=== PATIENT | male | born 1960 | race Caucasian/White ===

== ENCOUNTER 2022-07-20 13:59 | Emergency (ER) | payer OTHER ==
[~2022-07-20] VITALS: Ht 180 cm; Wt 91.0 kg
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
[2022-07-20] MEDS ORDERED: LIDOCAINE 1% INJ 20 ML VIAL INJ ONE (14:15)
[2022-07-20] MEDS ORDERED: TETANUS,DIPTH,PERTUSS P/F (BOOSTRIX) 0.5 ML VIAL IM ONE (14:15)
--- NOTE | 2022-07-20 14:29 | Diagnostic Imaging Report ---
INDICATION: Trauma, chest pain. TECHNIQUE: Frontal chest obtained at 02:24 p.m. FINDINGS: Heart is mildly enlarged. Mediastinal silhouette is unremarkable. There is no pneumothorax or pleural fluid. There is no overt bony abnormality. IMPRESSION: No acute process in the chest. Dictated by: Dictated on workstation # [id number]
--- NOTE | 2022-07-20 15:16 | Diagnostic Imaging Report ---
PROCEDURE: CT head and CT cervical spine without contrast. TECHNIQUE: Multiple contiguous axial images were obtained through the brain and cervical spine without the use of intravenous contrast. Sagittal and coronal reformations through the cervical spine were then performed. Auto Exposure Controls were utilized during the CT exam to meet ALARA standards for radiation dose reduction. INDICATION: Trauma, headache and neck pain and back pain with head laceration. COMPARISON: None. FINDINGS: No acute intracranial hemorrhage. The michelle-white matter differentiation is preserved. The ventricles and cortical sulci are normal. No midline shift or mass effect. No intracranial mass or fluid collection. Scalp laceration and hematoma along the posterior scalp. The subarachnoid cisterns are maintained. The sella is normal. There are scattered calcifications of the intracranial vasculature. The paranasal sinuses and mastoids are clear. Straightening of the cervical lordosis. Prior ACDF C4-C7. No high-density fluid within the spinal canal. No high-grade spinal canal and neural foraminal stenosis. IMPRESSION: No acute intracranial hemorrhage. No large vascular territory quiñonez-white loss. No intracranial mass, midline shift, or hydrocephalus. Posterior scalp hematoma and laceration. No skull fracture. No acute fracture or dislocation of the cervical spine. Dictated by: Dictated on workstation # [id number]
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
[2022-07-20 16:11] VITALS: BP 145/88
== END 2022-07-20 16:21 | disposition home or self-care (01) ==
LOC: ER 14:05
DX: S01.01XA Laceration without foreign body of scalp, initial encounter (principal); M54.6 Pain in thoracic spine; M54.2 Cervicalgia; Z23 Encounter for immunization; V84.5XXA Driver of special agricultural vehicle injured in nontraffic accident, initial encounter; Y92.828 Other wilderness area as the place of occurrence of the external cause
CPT/HCPCS: 12002; 70450; 71045; 72125; 72128; 90715

== ENCOUNTER 2022-07-27 12:29 | Emergency (ER) | payer OTHER ==
[~2022-07-27] VITALS: Ht 180 cm; Wt 90.9 kg
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
[2022-07-27] MEDS ORDERED: ONDANSETRON 4 MG (ZOFRAN) ORAL DISSOLVE TAB PO STA (13:11)
[2022-07-27] MEDS ORDERED: HYDROcodone/APAP 7.5 MG/325 MG (LORTAB, LORCET PLUS) TABLET PO ONE (13:15)
--- NOTE | 2022-07-27 13:41 | Diagnostic Imaging Report ---
INDICATION: Left-sided chest pain after injury one week ago. COMPARISON: 07/20/2022. DISCUSSION: Two views of the chest were obtained. Normal heart size. Improved aeration of the lungs. No consolidation, pleural fluid, or pneumothorax. No osseous abnormality identified. IMPRESSION: 1. Negative chest. Dictated by: Dictated on workstation # [id number]
[2022-07-27] MEDS ORDERED: ONDA4TAB11 PO (13:59)
[2022-07-27] MEDS ORDERED: HYDR-3817 PO (13:59)
[2022-07-27] MEDS ORDERED: RX-ONDANSETRON 4 MG ODT (ZOFRAN) PPK #4 PO STA (14:00)
[2022-07-27 14:17] VITALS: BP 140/94
== END 2022-07-27 14:17 | disposition home or self-care (01) ==
LOC: EDUNIT# 12:29 → ER 12:31
DX: S22.32XA Fracture of one rib, left side, initial encounter for closed fracture (principal); R11.0 Nausea; V84.9XXA Unspecified occupant of special agricultural vehicle injured in nontraffic accident, initial encounter
CPT/HCPCS: 71046